=== PATIENT | female | born 1930 | race Caucasian/White ===

== ENCOUNTER 2017-07-09 12:30 | Emergency (ER) | payer MEDICARE | END 2017-07-09 16:00 | disposition critical access hospital (66) | LOC: ER 12:30 | DX: N39.0 Urinary tract infection, site not specified (principal); F03.90 Unspecified dementia, unspecified severity, without behavioral disturbance, psychotic disturbance, mood disturbance, and anxiety; I10 Essential (primary) hypertension; F32.9 Major depressive disorder, single episode, unspecified; Z85.3 Personal history of malignant neoplasm of breast; Z90.12 Acquired absence of left breast and nipple; Z79.899 Other long term (current) drug therapy | CPT/HCPCS: 51701; 96365 ==

== ENCOUNTER 2017-07-09 12:30 | Observation (INO) | payer MEDICARE ==
[~2017-07-09] VITALS: Ht 167.6 cm; Wt 80.7 kg
== END 2017-07-10 17:00 | disposition home or self-care (01) ==
LOC: ER 12:30 → MED 16:00
PROVIDERS: ADMIT Internal Medicine Cardiovascular Disease
DX: F03.90 Unspecified dementia, unspecified severity, without behavioral disturbance, psychotic disturbance, mood disturbance, and anxiety (principal); I10 Essential (primary) hypertension; E03.9 Hypothyroidism, unspecified; Z85.3 Personal history of malignant neoplasm of breast; Z86.2 Personal history of diseases of the blood and blood-forming organs and certain disorders involving the immune mechanism; Z79.82 Long term (current) use of aspirin; Z79.899 Other long term (current) drug therapy; Z23 Encounter for immunization
CPT/HCPCS: 36415; 51701; 80307; 90686; 96365; 96372; 97162-GP; 97166; G0008; G0378; G0480; J0696; J1650